=== PATIENT | female | born 1950 | race Caucasian/White ===

== ENCOUNTER 2024-08-31 00:35 | Emergency (ER) | payer MEDICARE ==
[~2024-08-31] VITALS: Ht 160 cm; Wt 65.0 kg
[2024-08-31] MEDS ORDERED: ACYCLOVIR400 MG PO (01:17)
[2024-08-31] MEDS ORDERED: ATORVASTATIN CA20 MG PO (01:18)
[2024-08-31] MEDS ORDERED: BISOPROL FUM5 MG PO (01:19)
[2024-08-31] MEDS ORDERED: CIT CALCIUM200 MG PO (01:21)
[2024-08-31 01:22] VITALS: BP 179/80
[2024-08-31] MEDS ORDERED: ELIQUIS5 MG PO (01:22)
[2024-08-31] MEDS ORDERED: LANOXIN0.125 MG PO (01:22)
[2024-08-31] MEDS ORDERED: LISINOP/HCTZ1 TA1 PO (01:23)
[2024-08-31] MEDS ORDERED: MULTI VIT PO (01:24)
[2024-08-31] MEDS ORDERED: MECLIZINE25 MG PO (01:24)
[2024-08-31] MEDS ORDERED: ROPINIROLE1 MG PO (01:25)
[2024-08-31] MEDS ORDERED: cloNIDine HCL 0.1 MG/TAB PO ONE (01:30)
[2024-08-31] MEDS ORDERED: MECLIZINE HCL 25 MG/TAB PO ONE (01:30)
[2024-08-31 01:35] VITALS: BP 159/87
[2024-08-31] MEDS ORDERED: MECLIZINE 2525 MG PO (01:41)
[2024-08-31] MEDS ORDERED: CLONIDINE0.1 MG PO (01:41)
[2024-08-31 02:01] VITALS: BP 151/89
[2024-08-31 02:18] VITALS: BP 158/73
[2024-08-31 02:25] VITALS: BP 158/73
== END 2024-08-31 02:25 | disposition home or self-care (01) ==
LOC: ED 00:35
DX: R42 Dizziness and giddiness (principal); I48.20 Chronic atrial fibrillation, unspecified; I10 Essential (primary) hypertension; Z79.01 Long term (current) use of anticoagulants; Z95.1 Presence of aortocoronary bypass graft